=== PATIENT | male | born 1955 | race Caucasian/White ===

== ENCOUNTER → 2017-10-12 | Outpatient (CLI) | payer BC | LOC: COL.VAS 11:53 | DX: I34.0 Nonrheumatic mitral (valve) insufficiency (principal) ==

== ENCOUNTER 2017-12-17 12:21 | Day surgery (SDC) | payer BC ==
[~2017-12-17] VITALS: Ht 177.8 cm; Wt 90.8 kg
[2017-12-17] VITALS (10 sets, daily range): BP systolic 105–131; BP diastolic 54–80; PULSE 62–70; TEMP 97.7
[2017-12-17] MEDS ORDERED: MILLIPRED5 MG PO (12:42)
[2017-12-17] MEDS ORDERED: FLORINEF ACETA0.1 MG PO (12:49)
[2017-12-17] MEDS ORDERED: SYNTHROID 0.0.025 MG PO (12:49)
[2017-12-17] MEDS ORDERED: LIPITOR 10MG10 MG PO (12:49)
[2017-12-17 16:08] LABS: BASO % 0.3 % (0.0-2.0); EOS # 0.1 (0.0-0.7); EOS % 0.4 % (0-4.0); GRAN # 11.6 (1.4-6.5); GRAN % 84.5 % (42.2-75.2); HEMATOCRIT 48.2 % (42.0-52.0); HEMOGLOBIN 15.9 g/dl (13.5-18.0); LYMPH # 1.4 (1.2-3.4); LYMPH % 10.1 % (20.0-51.0); MEAN CELL VOLUME 86 fl (80.0-100.0); MEAN CORPUSCULAR HEMOGLOBIN 28 pg (27.0-31.0); MEAN CORPUSCULAR HGB CONC 33 g/dl (33.0-37.0); MEAN PLATELET VOLUME 9.5 fl (7.4-10.4); MONO # 0.6 (0.1-0.6); MONO % 4.4 % (1.7-9.3); PLATELET COUNT 247 K/mm3 (130-400); RED BLOOD COUNT 5.64 M/mm3 (4.20-5.60); REDCELL DISTRIBUTION WIDTH-CV 12.8 % (11.5-14.5)
[2017-12-17 16:10] LABS: PROTHROMBIN TIME 11.8 SECONDS (9.7-12.8)
[2017-12-17 16:13] LABS: CALCIUM 9.3 mg/dL (8.4-10.2); CREATININE, serum 0.9 mg/dL (0.66-1.25); PARTIAL THROMBOPLASTIN TIME 34.5 SECONDS (26.0-37.0)
[2017-12-17] MEDS ORDERED: CARDENE 20MG CA20 M1 PO (17:05)
== END 2017-12-17 19:50 | disposition home or self-care (01) ==
LOC: COL.CAR 12:21
PROVIDERS: Internal Medicine Interventional Cardiology
DX: R07.9 Chest pain, unspecified (principal); E03.8 Other specified hypothyroidism; E03.9 Hypothyroidism, unspecified; E27.1 Primary adrenocortical insufficiency; I10 Essential (primary) hypertension; Z79.899 Other long term (current) drug therapy
CPT/HCPCS: J2250; J3010; Q9967